=== PATIENT | female | born 1950 | race Caucasian/White ===

== ENCOUNTER 2018-06-03 15:59 | Emergency (ER) | payer MEDICAID ==
[~2018-06-03] VITALS: Ht 152.4 cm; Wt 70.4 kg
[2018-06-03] MEDS ORDERED: HYDR12.529 PO (16:23)
[2018-06-03 17:28] LABS: BASOPHILS % 0.5 % (0.0-2.0); EOSINOPHILS % 1.3 % (0.0-5.0); HEMATOCRIT. 35.9 % (36.0-48.0); HEMOGLOBIN. 11.8 g/dL (12.0-16.0); LYMPHOCYTES % 31.2 % (20.0-50.0); MEAN CORPUSCULAR HEMOGLOBIN 30.3 pg (28.0-32.0); MEAN PLATELET VOLUME 9.9 fl (7.4-10.4); MONOCYTES % 7.1 % (2.0-8.0); NEUTROPHILS % 59.9 % (40.0-76.0); PLATELET 273 x1000/uL (130-400)
[2018-06-03 17:37] LABS: PARTIAL THROMBOPLASTIN TIME 24.8 sec (23.4-31.0); PROTHROMBIN TIME 9.6 sec (9.1-11.1)
[2018-06-03 17:38] LABS: CHLORIDE 103 mEq/L (98-107)
[2018-06-03 17:45] LABS: HDL CHOLESTEROL 56 mg/dL (40-59); LDL CHOLESTEROL 158 mg/dL (5-100)
[2018-06-03 17:58] VITALS: BP 137/76
== END 2018-06-03 18:31 | disposition home or self-care (01) ==
LOC: ER 16:59 → CANBEDREQ 19:21
DX: R42 Dizziness and giddiness (principal); E78.00 Pure hypercholesterolemia, unspecified; D64.9 Anemia, unspecified; G47.00 Insomnia, unspecified; R53.1 Weakness; R51 Headache; I10 Essential (primary) hypertension
CPT/HCPCS: 36415; 71045; 80061; 83880; 84443; 84484; 93005; 99285

== ENCOUNTER 2018-10-11 09:16 | Emergency (ER) | payer MEDICAID ==
[~2018-10-11] VITALS: Ht 162.6 cm; Wt 78.0 kg
[~2018-10-11 09:16] MED LIST: HYDR12.529 PO
[2018-10-11] MEDS ORDERED: HYDROCODONE/ACETAMINOPHEN 5/325MG TABLET PO ONE (10:30)
[2018-10-11] MEDS ORDERED: KETOROLAC 30MG/ML VIAL IV ONE (10:30)
[2018-10-11 11:33] VITALS: BP 140/62
== END 2018-10-11 11:34 | disposition home or self-care (01) ==
LOC: ER 09:16
DX: S93.492A Sprain of other ligament of left ankle, initial encounter (principal); I10 Essential (primary) hypertension; W01.0XXA Fall on same level from slipping, tripping and stumbling without subsequent striking against object, initial encounter; Y93.89 Activity, other specified; Y92.89 Other specified places as the place of occurrence of the external cause; Y99.8 Other external cause status
CPT/HCPCS: 73610; 96374; 99283; J1885

== ENCOUNTER 2018-11-04 12:55 | Emergency (ER) | payer MEDICAID ==
[~2018-11-04] VITALS: Ht 157.5 cm; Wt 61.4 kg
[2018-11-04 14:53] LABS: BASOPHILS % 0.4 % (0.0-2.0); EOSINOPHILS % 5.2 % (0.0-5.0); HEMATOCRIT. 38.1 % (36.0-48.0); HEMOGLOBIN. 12.5 g/dL (12.0-16.0); LYMPHOCYTES % 22.7 % (20.0-50.0); MEAN CORPUSCULAR HEMOGLOBIN 29.6 pg (28.0-32.0); MEAN CORPUSCULAR VOLUME 90.5 fL (81.0-99.0); MEAN PLATELET VOLUME 9.7 fl (7.4-10.4); MONOCYTES % 5.4 % (2.0-8.0); NEUTROPHILS % 66.3 % (40.0-76.0); PLATELET 248 x1000/uL (130-400); RED BLOOD CELL COUNT 4.21 mill/uL (4.2-5.4); RED CELL DISTRIBUTION WIDTH 12.8 % (11.6-14.6)
[2018-11-04 14:59] LABS: CHLORIDE 104 mEq/L (98-107)
[2018-11-04 15:55] VITALS: BP 131/79
== END 2018-11-04 15:57 | disposition home or self-care (01) ==
LOC: ER 13:37
DX: I10 Essential (primary) hypertension (principal); Z79.899 Other long term (current) drug therapy
CPT/HCPCS: 36415; 80048; 99283

== ENCOUNTER 2019-02-13 09:49 | Emergency (ER) | payer MEDICAID ==
[~2019-02-13] VITALS: Ht 160 cm; Wt 73.0 kg
[2019-02-13 11:15] VITALS: BP 121/50
== END 2019-02-13 11:23 | disposition home or self-care (01) ==
LOC: ER 09:49
DX: Z76.0 Encounter for issue of repeat prescription (principal); I10 Essential (primary) hypertension
CPT/HCPCS: 99282

== ENCOUNTER 2019-03-11 10:22 | Emergency (ER) | payer MEDICAID ==
[~2019-03-11] VITALS: Ht 160 cm; Wt 68.0 kg
[2019-03-11 11:44] VITALS: BP 137/74
== END 2019-03-11 11:47 | disposition home or self-care (01) ==
LOC: ER 10:22
DX: I16.0 Hypertensive urgency (principal); Z76.0 Encounter for issue of repeat prescription; Z79.899 Other long term (current) drug therapy
CPT/HCPCS: 99283

== ENCOUNTER 2019-03-26 11:52 | Emergency (ER) | payer MEDICAID ==
[~2019-03-26] VITALS: Ht 154.9 cm; Wt 68.0 kg
[2019-03-26 12:49] VITALS: BP 112/54
== END 2019-03-26 13:58 | disposition home or self-care (01) ==
LOC: ER 11:52
DX: I10 Essential (primary) hypertension (principal)
CPT/HCPCS: 99281; 99283

== ENCOUNTER 2019-06-05 20:00 | Emergency (ER) | payer MEDICAID ==
[~2019-06-05] VITALS: Ht 154.9 cm; Wt 66.0 kg
[2019-06-05] MEDS ORDERED: ACETAMINOPHEN 325MG TABLET PO STA (22:11)
[2019-06-05] MEDS ORDERED: FLUORESCEIN SODIUM 1MG/STRIP RIGHTEYE ONE (22:15)
[2019-06-05] MEDS ORDERED: TETRACAINE 0.5% OPHTH DROPS 4ML RIGHTEYE ONE (22:15)
[2019-06-05 23:04] LABS: BASOPHILS % 0.4 % (0.0-2.0); EOSINOPHILS % 1.5 % (0.0-5.0); HEMATOCRIT. 32.7 % (36.0-48.0); HEMOGLOBIN. 10.8 g/dL (12.0-16.0); LYMPHOCYTES % 29.2 % (20.0-50.0); MEAN CORPUSCULAR HEMOGLOBIN 29.4 pg (28.0-32.0); MEAN CORPUSCULAR VOLUME 89.3 fL (81.0-99.0); MEAN PLATELET VOLUME 10.4 fl (7.4-10.4); MONOCYTES % 7.4 % (2.0-8.0); NEUTROPHILS % 61.5 % (40.0-76.0); PLATELET 195 x1000/uL (130-400); RED BLOOD CELL COUNT 3.66 mill/uL (4.2-5.4); RED CELL DISTRIBUTION WIDTH 12.9 % (11.6-14.6)
[2019-06-05 23:10] LABS: CHLORIDE 105 mEq/L (98-107)
[2019-06-05] MEDS ORDERED: HYDROCODONE/ACETAMINOPHEN 5/325MG TABLET PO ONE (23:45)
[2019-06-06 00:30] VITALS: BP 131/68
== END 2019-06-06 00:30 | disposition home or self-care (01) ==
LOC: ER 20:00
DX: R51 Headache (principal); D64.9 Anemia, unspecified; H57.11 Ocular pain, right eye; E78.00 Pure hypercholesterolemia, unspecified; I10 Essential (primary) hypertension; Z79.899 Other long term (current) drug therapy
CPT/HCPCS: 36415; 85651; 99284